=== PATIENT | male | born 1980 | race American Indian/Alaskan Native ===

== ENCOUNTER 2017-12-16 13:57 | Emergency (ER) | payer OTHER ==
[2017-12-16 14:29] VITALS: O2SAT 100
--- NOTE | 2017-12-16 16:19 | ED PDOC ---
Upper Extremity Pain/Injury Time Seen by Provider: 12/16/17 15:01 Chief Complaint (Nursing): Finger,Hand,&Wrist Chief Complaint (Provider): Left hand injury History Per: Patient History/Exam Limitations: no limitations Onset/Duration Of Symptoms: Hrs Current Symptoms Are (Timing): Still Present Quality: "Pain" Exacerbating Factor(s): Strenuous Use Of Affected Area Additional History Per: Patient Additional Complaint(s): 37yo male, comes to ER with complaints of left hand injury while he was at work. 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 He states the digits is currently flexing forward and is unable to fully extend the tip of the finger. Otherwise, he denies any other weakness, numbness , tingling, or other injuries. Past Medical History Reviewed: Historical Data, Nursing Documentation, Vital Signs Vital Signs: Last Vital Signs Temp 98 F 12/16/17 14:27 Pulse 93 H 12/16/17 14:27 Resp 18 12/16/17 14:27 BP 117/78 12/16/17 14:27 Pulse Ox 100 12/16/17 14:27 - Medical History PMH: No Chronic Diseases - Surgical History Surgical History: No Surg Hx - Family History Family History: States: Unknown Family Hx - Home Medications Home Medications: Ambulatory Orders Medication Instructions Recorded Cyclobenzaprine HCl [Flexeril] 10 mg PO HS #7 tab 05/31/14 Oxycodone HCl/Acetaminophen 1 tab PO Q6 PRN #10 tab 05/31/14 [Percocet 325 mg-5 mg] - Allergies Allergies/Adverse Reactions: Allergies Allergy/AdvReac Type Severity Reaction Status Date / Time No Known Allergies Allergy Verified 12/16/17 14:27 Review of Systems ROS Statement: Except As Marked, All Systems Reviewed And Found Negative Musculoskeletal: Positive for: Hand Pain (left 5th digit injury) Neurological: Negative for: Weakness, Numbness Physical Exam - Reviewed Nursing Documentation Reviewed: Yes Vital Signs Reviewed: Yes - Physical Exam Comments: GENERAL APPEARANCE: Patient is awake, alert, oriented x 3, in no acute distress. SKIN: Warm, dry; (-) cyanosis. HAND: Left 5th digit at DIP joint held at flexion, can fully flex digit, unable to extend at DIP. (-) Tenderness, (+) Capillary refill < 2 seconds. Distal sensations intact. FROM at all other digits on left hand. NEURO AND PSYCH: Mental status as above. - ECG O2 Sat by Pulse Oximetry: 100 (RA) Pulse Ox Interpretation: Normal Medical Decision Making Medical Decision Making: Impression: Left hand injury Plan: -- XR Left hand XR left hand: no fracture, no dislocation, as read by PA. Orthoglass finger splint applied to left 5th digit. Diagnostic results d/w the patient in great detail. Diagnosis of possible tendon injury d/w the patient. Based on history, exam and diagnostic results, plan will be for outpatient follow up with hand specialist Dr. Frausto. Patient instructed to follow-up with Dr Frausto in 1-2 days without fail. Return to the emergency room at any time for any new or worsening symptoms. Patient states he fully agrees with and understands discharge instructions. States that he agrees with the plan and disposition. Verbalized and repeated discharge instructions and plan. I have given the patient opportunity to ask any additional questions. Scribe Attestation: Documented by Nusrat Storey, acting as a scribe for JOSSELYN Allen Provider Scribe Attestation: All medical record entries made by the Scribe were at my direction and personally dictated by me. I have reviewed the chart and agree that the record accurately reflects my personal performance of the history, physical exam, medical decision making, and the department course for this patient. I have also personally directed, reviewed, and agree with the discharge instructions and disposition. Disposition - Clinical Impression Clinical Impression: Injury of tendon of finger, Finger injury - Patient ED Disposition Is Patient to be Admitted: No Counseled Patient/Family Regarding: Studies Performed, Diagnosis, Need For Followup - Disposition Referrals: Arjun Frausto MD [Medical Doctor] - Disposition: Routine/Home Disposition Time: 16:15 Condition: STABLE Additional Instructions: Thank you for letting us take care of you today. You were treated for finger tendon injury. The emergency medical care you received today was directed at your acute symptoms. Return to the Emergency Department if your symptoms worsen , do not improve, or if you have any other problems. Please call one of the physicians you have been referred and follow up in 1-2 days without fail. Bring any paperwork you were given at discharge with you along with any medications you are taking to your follow up visit. Our treatment cannot replace ongoing medical care by a primary care provider (PCP) outside of the emergency department. Thank you for allowing the [facility] team to be part of your care today. Instructions: Citlalli Mcclure (DC), Common Finger Injuries Forms: [employer] (Japanese), [facility] ED School/Work Excuse - PA / RN DOCUMENT IMPROVEMENT / Resident Statement MD/DO has reviewed & agrees with the documentation as recorded.
--- NOTE | 2017-12-16 16:37 | RAD ---
PROCEDURE: Limited left hand radiographs with focus on the 5th digit. HISTORY: trauma COMPARISON: None. FINDINGS: BONES: No acute fracture. JOINTS: Normal. No osteoarthritic changes. SOFT TISSUES: Normal. OTHER FINDINGS: None. IMPRESSION: No acute fracture.
[2017-12-16 16:53] VITALS: BP 128/83; PULSE 74; RESP 17; TEMP 98.1
== END 2017-12-16 16:50 | disposition home or self-care (01) ==
LOC: H.ER 13:57
DX: S69.92XA Unspecified injury of left wrist, hand and finger(s), initial encounter (principal); W23.0XXA Caught, crushed, jammed, or pinched between moving objects, initial encounter; Y99.0 Civilian activity done for income or pay